=== PATIENT | female | born 1960 | race Caucasian/White ===

== ENCOUNTER → 2017-01-10 | Outpatient (CLI) | payer OTHER ==
[~2017-01-10] MED LIST: ASPI81TA28 PO; BIOT1CAP3; CHOL1CAP79; CLMTP5; MEDR2.5T PO; METH1CHW; MULT-506 PO; NIAC500T11 PO; OMEG10007 PO
[2017-01-10 17:11] LABS: LYME DISEASE AB IGG NEG (NEG); LYME DISEASE AB IGM NEG (NEG)
== END | disposition home or self-care (01) ==
LOC: C.LAB1850 14:03
PROVIDERS: ATTEND Physician Assistant
DX: T14.8 Other injury of unspecified body region (principal); W57.XXXA Bitten or stung by nonvenomous insect and other nonvenomous arthropods, initial encounter

== ENCOUNTER → 2017-05-16 | Outpatient (CLI) | payer OTHER | END | disposition home or self-care (01) | LOC: C.PAPS 10:36 | PROVIDERS: ATTEND Physician Assistant | DX: Z12.4 Encounter for screening for malignant neoplasm of cervix (principal) ==

== ENCOUNTER → 2017-07-02 | Outpatient (CLI) | payer OTHER ==
--- NOTE | 2017-07-02 12:47 | DIAGNOSTIC IMAGING REPORT ---
[facility] CLINICAL HISTORY: Nephrolithiasis. FINDINGS: 2 AP abdominal radiograph are compared to study dated 01/11/2016 and correlated with abdominal CT dated 12/27/2015. There is a nonobstructed abdominal bowel gas pattern. Mild colonic fecal retention is observed. Large calcified fibroids are present in the pelvis. Several phleboliths in the right hemipelvis are unchanged. Again seen are at least 3 nonobstructing left renal calculi which measure up to 6 mm. No calcifications are seen projecting over the right kidney or along the course of the ureters. The bony structures appear intact. IMPRESSION: 1. Nonobstructing left renal calculi as above. 2. Calcified phleboliths and fibroids are noted in the pelvis. Electronically signed by: Ruddy Apple M.D. 07/02/2017 12:46 PM Dictated Date/Time: 07/02/2017 12:44 PM
== END | disposition home or self-care (01) ==
LOC: C.RAD 12:07
PROVIDERS: ATTEND Nurse Practitioner Adult Health
DX: N20.0 Calculus of kidney (principal)

== ENCOUNTER → 2017-07-02 | Outpatient (CLI) | payer OTHER | END | disposition home or self-care (01) | LOC: C.LABSPEC 16:52 | PROVIDERS: ATTEND Nurse Practitioner Adult Health | DX: N20.0 Calculus of kidney (principal) ==